=== PATIENT | male | born 1990 | race Caucasian/White ===

== ENCOUNTER 2024-04-30 10:52 | Emergency (ER) | payer SELFPAY ==
[2024-04-30 10:56] VITALS: BP 137/97
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
== END 2024-04-30 11:55 | disposition home or self-care (01) ==
LOC: EMR 10:52
PROVIDERS: EMERGENCY PHYSICIAN Student in an Organized Health Care Education/Training Program
DX: G57.31 Lesion of lateral popliteal nerve, right lower limb (principal)
CPT/HCPCS: 99282

== ENCOUNTER 2024-08-04 20:53 | Emergency (ER) | payer OTHER, SELFPAY ==
[2024-08-04 21:10] VITALS: BP 166/94
[2024-08-04 21:33] LABS: % Basophils 0.8 % (0-2); % Eosinophils 1.1 % (0-6); % Immature Granulocytes 0.5 % (0-0.5); % Lymphocytes 28.2 % (20.5-51.1); % Monocytes 7.6 % (1.7-9.3); % Neutrophils 61.8 % (42.2-75.2); Absolute Basophils 0.1 10^3/uL (0-0.2); Absolute Eosinophils 0.1 10^3/uL (0-0.7); Absolute Immature Granulocytes 0.1 10^3/uL (0-0.05); Absolute Lymphocytes 2.9 10^3/uL (1.2-3.4); Absolute Monocytes 0.8 10^3/uL (0.1-0.6); Absolute Neutrophils 6.4 10^3/uL (1.4-6.5); Hematocrit 42.6 % (39.0-52.0); Hemoglobin 14.7 g/dL (13.0-18.0); Mean Corp Hgb Conc. 34.5 g/dL (33.0-37.0); Mean Corpuscular Hgb 31.5 pg (27.0-31.0); Mean Corpuscular Volume 91.4 fL (80.0-94.0); Mean Platelet Volume 8.2 fL (7.4-10.4); Nucleated Red Blood Cells % 0 % (-); Platelet Count 323 10^3/uL (130-400); Red Blood Cell Count 4.66 10^6/uL (4.70-6.10); White Blood Cell Count 10.4 10^3/uL (4.8-10.8)
[2024-08-04 21:49] LABS: ALT (SGPT) 50 U/L (0-50); AST (SGOT) 40 U/L (17-59); Alkaline Phosphatase 59 U/L (38-126); Blood Urea Nitrogen 18 mg/dl (9-20); Calcium 9.5 mg/dl (8.4-10.2); Carbon Dioxide 24 mmol/L (22-30); Chloride 100 mmol/L (98-107); Glucose 108 mg/dl (70-99); Potassium 3.5 mmol/L (3.5-5.1); Sodium 137 mmol/L (135-145); Total Bilirubin 0.8 mg/dl (0.2-1.3); Total Protein 7.4 g/dl (6.3-8.2); eGFR > 60.00
[2024-08-04 22:00] LABS: Troponin I < 0.012 ng/ml
[2024-08-05 00:03] VITALS: BP 163/84
[2024-08-05 01:00] VITALS: BP 154/74
[2024-08-05] MEDS: LOPRESSOR 25 MG PO (01:15)
[2024-08-05 02:00] VITALS: BP 141/77
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
[2024-08-05 03:00] VITALS: BP 129/75
== END 2024-08-05 03:08 | disposition home or self-care (01) ==
LOC: EMR 20:53
PROVIDERS: Emergency Medicine; EMERGENCY PHYSICIAN Emergency Medicine; FAMILY PHYSICIAN Internal Medicine
DX: I10 Essential (primary) hypertension (principal); Z82.49 Family history of ischemic heart disease and other diseases of the circulatory system; Z90.49 Acquired absence of other specified parts of digestive tract
CPT/HCPCS: 99284; 70450; 80053; 84484; 85025; 93005